=== PATIENT | female | born 1980 | race Caucasian/White ===

== ENCOUNTER → 2024-03-12 07:57 | Outpatient (REF) | payer OTHER, SELFPAY | LOC: WDC 07:57 | PROVIDERS: ATTENDING PHYSICIAN Student in an Organized Health Care Education/Training Program | DX: Z12.31 Encounter for screening mammogram for malignant neoplasm of breast (principal) | CPT/HCPCS: 77063; 77067 ==

== ENCOUNTER 2025-02-19 20:38 | Emergency (ER) | payer OTHER, SELFPAY ==
[2025-02-19 20:42] VITALS: BP 126/83
[2025-02-19] MEDS: ADACEL 0.5 ML IM (21:33)
[2025-02-19] MEDS: UNASYN IV (21:35)
--- NOTE | 2025-02-19 21:55 | ED.SKININJ ---
HPI-Injury
General
Chief Complaint: Bite
Time Seen by Provider: 02/19/25 20:54
History of Present Illness-Injury
Initial Injury comments:
44-year-old female presents to the emergency for evaluation of right hand pain and swelling after cat bite earlier this evening. Bitten by her own cat, up-to-date rabies vaccinations. Last tetanus is unknown
Past History
Past History
ED Past Medical History: None
ED Past Surgical History: None
Social History
Tobacco: Smoker
Personal:
Living: with family
Review of Systems
Review of Systems
Allergies reviewed?: Yes
All Other Systems: ROS reviewed and negative except as documented in HPI and ROS
Phy Exam
Physical Exam
Physical Exam:
GEN: Well appearing, NAD, WDWN
HEENT: Oral mucosa moist, no scleral icterus
Cardiac: Regular rate
Lung: No respiratory distress, no tachypnea
MSK: Puncture wounds to the right dorsal hand with diffuse soft tissue swelling. Exquisite pain with passive flexion at the MCP joints, no lymphangitis
Skin: Good color, no pallor or jaundice, no rashes
Neuro: AO x3, moves all extremities freely
Psych: Calm, cooperative
Course
Orders/Labs/Results
Orders:
Orders
02/19/25 21:03
Tetanus/Diphth/Acelpertussis [Adacel] 0.5 ml IM .ONCE ONE
02/19/25 21:11
Ampicillin/Sulbactam 3 G [Unasyn] 3 gm 0.9% Sodium Chloride 100 ml [Nss] 100 ml IV NOW
02/19/25 22:12
Amoxicillin 875 mg/Clav 125 mg [Augmentin 875 mg/125 mg] 1 tablet PO NOW STA
Vital Signs
Initial and Last Documented VS:
Initial Vital Signs
Temp Pulse Resp BP Pulse Ox
98.0 F 85 20 126/83 99
02/19/25 20:42 02/19/25 20:42 02/19/25 20:42 02/19/25 20:42 02/19/25 20:42
Last Documented Vital Signs
Temp Pulse Resp BP Pulse Ox
98.0 F 85 20 126/83 99
02/19/25 20:42 02/19/25 20:42 02/19/25 20:42 02/19/25 20:42 02/19/25 21:58
MDM/Problems Addressed
MDM/Problems Addressed:
Due to patient's exquisite pain with passive flexion and concerned about developing tenosynovitis. At this time there is no benefit to given the acute nature of the injury, treated with 1 dose IV antibiotics and will start on oral antibiotics,
tetanus updated. Strict ED return parameters discussed
*Pulse Oximetry
SaO2: 99
Oxygen Mode of Delivery: Room air
Patient hypoxic: no
*Critical Care Note
Total Time (30-74mins, 75-104mins- exclusive of procedures): Not Applicable
ED Attending Note
-
Portions of this chart may have been created with voice recognition software.� Occasional wrong word or��sound alike� substitutions may have occurred due to the inherent limitations of voice recognition software.
Discharge Plan
Departure
Patient Disposition: Home (Routine Discharge)
Date of Disposition: 02/19/25
Time of Disposition: 21:58
Patient with high blood pressure during this ER visit?: No
Discharge Problem:
Cat bite of right hand
Instructions: Animal Bites (DC)
Prescriptions:
New
amoxicillin-pot clavulanate 875-125 mg tablet
1 tab PO BID Qty: 14 0RF
No Action
No Meds [No Current Medications]
0
benzonatate 100 MG capsule
100 mg PO TIDPRN PRN (Reason: cough) Qty: 20 0RF
Referrals:
Francia Foster MD [Family Provider, Internal Medicine]
Activity Restrictions/Additional Instructions:
Return to the ER if your symptoms worsen
Interventions
Interventions:
*General Assessment Last Done: 02/19/25 20:42
ED-Skin Assessment Last Done: 02/19/25 21:48
Discharge Date and Time
Print Language: MACEDONIAN
[2025-02-19] MEDS: AUGMENTIN 875 MG/125 MG 1 TABLET PO (22:15)
== END 2025-02-19 22:49 | disposition home or self-care (01) ==
LOC: EMR 20:38
PROVIDERS: EMERGENCY PHYSICIAN Student in an Organized Health Care Education/Training Program; FAMILY PHYSICIAN Student in an Organized Health Care Education/Training Program
DX: S61.431A Puncture wound without foreign body of right hand, initial encounter (principal); W55.01XA Bitten by cat, initial encounter; F17.200 Nicotine dependence, unspecified, uncomplicated; Z23 Encounter for immunization
CPT/HCPCS: 96374; 90471; 99284; 90715

== ENCOUNTER → 2025-02-20 18:43 | Outpatient (REF) | payer OTHER, SELFPAY | LOC: RAD 18:43 | PROVIDERS: ATTENDING PHYSICIAN Student in an Organized Health Care Education/Training Program | DX: M79.641 Pain in right hand (principal); S61.451A Open bite of right hand, initial encounter; W55.01XA Bitten by cat, initial encounter | CPT/HCPCS: 73130 ==

== ENCOUNTER 2025-02-23 08:26 | Emergency (ER) | payer OTHER, SELFPAY ==
[2025-02-23 08:33] VITALS: BP 136/91
[2025-02-23 08:57] VITALS: BMI 29.4
--- NOTE | 2025-02-23 09:24 | ED.GENMED ---
History of Present Illness
<Liseth Bhakta PA-C - Last Filed: 02/23/25 22:37>
General
Chief Complaint: Skin Problem
Source: patient
Exam Limitations: none
Time Seen by Provider: 02/23/25 09:04
Nursing documentation reviewed up to this point in time: agreed with
History of Present Illness
History of Present Illness:
Patient is a healthy 44-year-old female who presents to the emergency department with worsening pain/swelling in right hand following cat bite on Tuesday. Patient sustained a bite to the dorsal aspect of right hand by her cat. She was seen in the
emergency department that evening due to significant swelling and pain in right hand with limited range of motion. She was given a dose of Unasyn in the ED and discharged home with Augmentin.
Patient states that she initially noticed improvement in pain and swelling over the subsequent few days however today felt symptoms were acutely worse. She describes worsening swelling and redness in her right hand. She states that she is having
very limited range of motion in right fingers, specifically has an inability to make a fist.
She denies any fevers. No numbness/tingling in right hand.
Patient has an NSAID allergy and states Tylenol has not been helping her pain. She has been on Augmentin for 4 days.
Past History
<Liseth Bhakta PA-C - Last Filed: 02/23/25 22:37>
Past History
ED Past Medical History: None
ED Past Surgical History: None
Social History
Tobacco: Smoker
Personal:
Living: with family
Review of Systems
<Liseth Bhakta PA-C - Last Filed: 02/23/25 22:37>
Review of Systems
Allergies reviewed?: Yes
All Other Systems: ROS reviewed and negative except as documented in HPI and ROS
Phy Exam
<Liseth Bhakta PA-C - Last Filed: 02/23/25 22:37>
Physical Exam
Physical Exam:
Vitals: Patient's vital signs are stable. Afebrile
General: Patient is well uncomfortable appearing due to pain
Skin: Puncture wounds to dorsal aspect of right hand as well as webspace of second finger. Minimal surrounding erythema without any active purulent drainage. No areas of fluctuance or induration. She does have diffuse edema of the right hand
extending to MCP joints of digits 2 through 5 with significant tenderness.
Neck: Normal ROM, no cervical spine tenderness, no meningismus
Cardiac: Regular rate and rhythm, no murmurs.
Pulm: Normal respiratory effort. Lungs clear
Extremities: Puncture wounds with suspected surrounding cellulitis of right hand as above. No focal tenderness over flexor aspect of right fingers. She has ability to flex at PIP and DIP joints in right hand however limited flexion at MCP. 2+
palpable radial pulse in right upper extremity with normal capillary refill
Neuro: AAOx3. Grossly intact
Psychiatric: Normal affect.
Course
<Liseth Bhakta PA-C - Last Filed: 02/23/25 22:37>
Orders/Labs/Results
Orders:
Orders
02/23/25 09:23
Oxycodone [Roxicodone] 5 mg PO NOW STA
Hand, Right 3 View [CR Hand - Right Min 3 Views] Urgent
Comment:
Reason For Exam: worsening hand swelling/pain follow cat bite
02/23/25 10:44
Sulfamethox./Trimethoprim Ds [Bactrim Ds 800 mg/160 mg] 1 tablet PO NOW STA
Vital Signs
Initial and Last Documented VS:
Initial Vital Signs
Temp Pulse Resp BP Pulse Ox
97.8 F 85 16 136/91 99
02/23/25 08:33 02/23/25 08:33 02/23/25 08:33 02/23/25 08:33 02/23/25 08:33
Last Documented Vital Signs
Temp Pulse Resp BP Pulse Ox
97.8 F 82 16 123/84 100
02/23/25 08:33 02/23/25 09:35 02/23/25 09:35 02/23/25 09:35 02/23/25 09:35
<Silvana Vargas MD - Last Filed: 02/23/25 10:48>
Orders/Labs/Results
Orders:
Orders
02/23/25 09:23
Oxycodone [Roxicodone] 5 mg PO NOW STA
Hand, Right 3 View [CR Hand - Right Min 3 Views] Urgent
Comment:
Reason For Exam: worsening hand swelling/pain follow cat bite
02/23/25 10:44
Sulfamethox./Trimethoprim Ds [Bactrim Ds 800 mg/160 mg] 1 tablet PO NOW STA
Vital Signs
Initial and Last Documented VS:
Initial Vital Signs
Temp Pulse Resp BP Pulse Ox
97.8 F 85 16 136/91 99
02/23/25 08:33 02/23/25 08:33 02/23/25 08:33 02/23/25 08:33 02/23/25 08:33
Last Documented Vital Signs
Temp Pulse Resp BP Pulse Ox
97.8 F 82 16 123/84 100
02/23/25 08:33 02/23/25 09:35 02/23/25 09:35 02/23/25 09:35 02/23/25 09:35
<Liseth Bhakta PA-C - Last Filed: 02/23/25 22:37>
MDM/Problems Addressed
Differential Diagnosis Includes:
Not limited to: Cellulitis, hematoma, abscess, etc
MDM/Problems Addressed:
44-year-old female presenting with persistent swelling/tenderness of right hand after cat bite four days ago. She has been taking Augmentin as prescribed. No fever.
Vitals and physical exam as above. She has a healing puncture wound of the right dorsal hand with generalized edema extending to MCP joints. There is no significant erythema surrounding puncture wounds, drainage, or localized area of fluctuance.No
findings of flexor tenosynovitis today.
Repeat x-ray reveals soft tissue swelling without any evidence of retained foreign body or fracture.
Patient did show us a picture from her visit in ED four days ago and clinically it actually looks to be improving. Do not feel patient requires admission fo IV antibiotics.
While clinically appears to be improving � given patient report of purulent drainage, will add oral bactrim to anabiotic regimen. Otherwise stable for discharge. Strict return precautions discussed.
Chronic conditions affecting care:
N/A
Acute Exacerbation and/or Progression of Chronic Illness:
N/A
<Liseth Bhakta PA-C - Last Filed: 02/23/25 22:37>
*Radiology
Radiology exam reviewed: preliminary read by ED provider (Right hand x-ray reviewed by dc-soft tissue swelling of right hand without any identified foreign body or fracture)
*Pulse Oximetry
SaO2: 99
Oxygen Mode of Delivery: Room air
Patient hypoxic: no
*EKG
Interpreted by ED Provider?: NA
*Music Worker Interpretation
Rate: Music Worker- N/A
*Critical Care Note
Total Time (30-74mins, 75-104mins- exclusive of procedures): Not Applicable
Data Reviewed
Review of Other/Old Records Reveals: Discharge Summary (ED discharge summary from recent visit for cat bite - given IV unasyn and discharged on augmentin)
ED Attending Note
<Liseth Bhakta PA-C - Last Filed: 02/23/25 22:37>
-
Portions of this chart may have been created with voice recognition software.� Occasional wrong word or��sound alike� substitutions may have occurred due to the inherent limitations of voice recognition software.
<Silvana Vargas MD - Last Filed: 02/23/25 10:48>
ED Attending Note
Patient seen and examined by attending physician: Yes
I performed the substantive portion of visit, reviewed & personally made and approve the management plan that is documented in note by myself or BALTAZAR.: Yes
ED Attending Note:
I have seen and evaluated the patient with a [id number] encounter. I have spoken to the [BALTAZAR] and involved in the medical history, the physical exam, medical decision making.
Evaluation and management service: agree unless noted differently below.
Results interpretation: agree unless noted differently below.
44-year-old woman presenting to the emergency department with a skin infection to her right hand. Patient states that she was seen here on Tuesday after a cat bite. Was discharged on Augmentin. She states that she noticed localized swelling to
the bite so she came in for further evaluation. She does state that overall the swelling has improved. She did notice some white drainage this morning. I did personally evaluate patient a picture from Tuesday and there is significant swelling
to the entire hand and MCP and fingers. On exam today there is definitely more wrinkling of the skin and less swelling to the entire hand. It is more localized just overlying the Bite. No fluctuance. No active drainage. No warmth. X-ray per my
interpretation with no retained foreign body. Given the purulent drainage this morning will add on Bactrim. I did discuss with patient admission however patient would prefer to be discharged at this time. I do think is appropriate given that the
overall swelling has improved and she is afebrile without any other systemic signs of infection.
Discharge Plan
Departure
Patient Disposition: Home (Routine Discharge)
Date of Disposition: 02/23/25
Time of Disposition: 10:48
Patient with high blood pressure during this ER visit?: Yes
Condition: Good
Discharge Problem:
Cat bite of right hand
Instructions: Cellulitis (Skin Infection), Adult (DC), Animal bites - ED (DC), BLOOD PRESSURE
Prescriptions:
New
sulfamethoxazole-trimethoprim [Bactrim DS] 800-160 mg tablet
1 tab PO BID 7 Days Qty: 14 0RF
No Action
No Meds [No Current Medications]
0
benzonatate 100 MG capsule
100 mg PO TIDPRN PRN (Reason: cough) Qty: 20 0RF
amoxicillin-pot clavulanate 875-125 mg tablet
1 tab PO BID Qty: 14 0RF
Referrals:
Francia Foster MD [Family Provider, Internal Medicine] - Follow up in 5-7 days
Activity Restrictions/Additional Instructions:
RETURN TO THE EMERGENCY DEPARTMENT WITH FEVERS, SIGNIFICANT WORSENING IN REDNESS, SWELLING, OR PAIN OF RIGHT HAND, LIMITED RANGE OF MOTION, WORSENING IN CURRENT SYMPTOMS, OR ANY OTHER CONCERNS
- As discussed�we will add an additional antibiotic that you should take twice daily for the next 7 days. Continue to take Augmentin as prescribed. It is important that you complete both courses of these antibiotics.
- Please continue to wash wound daily with Hibiclens and keep covered with nonstick bandage and gauze. Keep hand elevated when able.
-You can continue to take Tylenol and/or tramadol as prescribed your primary care provider as needed for pain.
- Follow-up with primary care to ensure infection continues to improve.
Monitor your symptoms closely and return to the emergency department with any acute worsening/new symptoms or any other concerns
Interventions
Interventions:
*Risk Screen - Suicide Last Done: 02/23/25 08:33
*General Assessment Last Done: 02/23/25 08:57
*Neglect/Abuse Screening Last Done: 02/23/25 08:33
*ED COVID-19 Vaccine History Last Done: 02/23/25 08:57
*ED Influenza Vaccine History Last Done: 02/23/25 08:57
[facility] Risk Assessment Tool Last Done: 02/23/25 08:57
*Nursing Disposition Last Done: 02/23/25 11:00
ED-Skin Assessment Last Done: 02/23/25 09:00
Discharge Date and Time
Discharge Date/Time: 02/23/25 11:00
Print Language: BULGARIAN
[2025-02-23] MEDS: ROXICODONE 5 MG PO (09:32)
[2025-02-23 09:35] VITALS: BP 123/84
--- NOTE | 2025-02-23 09:37 | EDRN ---
Pt states wound on proximal end was draining this am what she though was pus but no order and watery clear/bloody drainage.
--- NOTE | 2025-02-23 10:28 | EDRN ---
Florentin ALVARADO in room w/ pt.
--- NOTE | 2025-02-23 10:30 | EDRN ---
Dr. Vargas in room w/ pt at this time.
[2025-02-23] MEDS: BACTRIM DS 800 MG/160 MG 1 TABLET PO (10:55)
--- NOTE | 2025-02-23 10:55 | EDRN ---
Wound cleansed w/ saline and dressed w/ adaptic and jaden after marking light redness around wound and dating it.
== END 2025-02-23 11:00 | disposition home or self-care (01) ==
LOC: EMR 08:26
PROVIDERS: EMERGENCY PHYSICIAN Student in an Organized Health Care Education/Training Program; FAMILY PHYSICIAN Student in an Organized Health Care Education/Training Program
DX: S61.451A Open bite of right hand, initial encounter (principal); W55.01XA Bitten by cat, initial encounter; F17.200 Nicotine dependence, unspecified, uncomplicated
CPT/HCPCS: 99283; 73130